=== PATIENT | male | born 1985 | race Caucasian/White ===

== ENCOUNTER 2020-11-17 07:20 | Emergency (ER) | payer OTHER ==
[~2020-11-17] VITALS: Ht 170.2 cm; Wt 104.0 kg
--- NOTE | 2020-11-17 07:49 | PHYS DOC ---
General Adult EDM: Chief Complaint: EYE PROBLEMS HPI: HPI: 34-year-old male presents with left eye pain. The patient woke up at 1 AM with stabbing pain of the left eye. He has no idea what happened. He does not recall getting anything in it. He felt normal when he went to sleep. He was able to go back to sleep afterward improved by morning. When he woke up to get his daughter ready for school, he still had significant pain. He denies fever or chills. Review of Systems: Review of Systems: Constitutional: Denies fever or chills Eyes: Left eye pain HENT: Denies nasal congestion or sore throat Respiratory: Denies cough or shortness of breath Cardiovascular: Denies chest pain or edema GI: Denies abdominal pain, nausea, vomiting, bloody stools or diarrhea : Denies dysuria Musculoskeletal: Denies back pain or joint pain Integument: Denies rash Neurologic: Denies headache, focal weakness or sensory changes Endocrine: Denies polyuria or polydipsia Lymphatic: Denies swollen glands Psychiatric: Denies depression or anxiety Physical Exam: PE: Constitutional: Well developed, well nourished, no acute distress, non-toxic appearance. [] HENT: Normocephalic, atraumatic, bilateral external ears normal, oropharynx moist, no oral exudates, nose normal. [] Eyes: PERRLA, EOMI, conjunctiva erythematous left eye, no discharge. [] Neck: Normal range of motion, no tenderness, supple, no stridor. [] Cardiovascular:Heart rate regular rhythm, no murmur [] Lungs & Thorax: Bilateral breath sounds clear to auscultation [] Abdomen: Bowel sounds normal, soft, no tenderness, no masses, no pulsatile masses. [] Skin: Warm, dry, no erythema, no rash. [] Back: No tenderness, no CVA tenderness. [] Extremities: No tenderness, no cyanosis, no clubbing, ROM intact, no edema. [] Neurologic: Alert and oriented X 3, normal motor function, normal sensory function, no focal deficits noted. [] Psychologic: Affect normal, judgement normal, mood normal. [] EKG: EKG: [] Radiology/Procedures: Radiology/Procedures: [] Heart Score: C/O Chest Pain: N/A Risk Factors: Risk Factors: DM, Current or recent (<one month) smoker, HTN, HLP, family history of CAD, obesity. Risk Scores: Score 0 - 3: 2.5% MACE over next 6 weeks - Discharge Home Score 4 - 6: 20.3% MACE over next 6 weeks - Admit for Clinical Observation Score 7 - 10: 72.7% MACE over next 6 weeks - Early Invasive Strategies Course & Med Decision Making: Course & Med Decision Making Pertinent Labs and Imaging studies reviewed. (See chart for details) I performed a fluorescein and Wood's lamp evaluation. No obvious foreign body. No significant finding with upper eyelid inversion. The patient did have some increased uptake in the lateral sclera and a patch-like area. I will prescribe erythromycin ointment for 7 days. He is stable for discharge at this time. [] Dragon Disclaimer: Dragon Disclaimer: This electronic medical record was generated, in whole or in part, using a voice recognition dictation system. Departure Departure: Impression: Primary Impression: Bacterial conjunctivitis of left eye Disposition: HOME / SELF CARE / HOMELESS Condition: STABLE Referrals: ROSE KATE MD (PCP) Patient Instructions: Bacterial Conjunctivitis, [id number] Scripts Erythromycin Base (Erythromycin) 1 Gm Oint...g. 1 GM OP TID for bacterial conjunctivitis for 7 Days, #1 MISC Prov: TAMMY DE ANDA DO 11/17/20 TAMMY DE ANDA DO Nov 17, 2020 07:49
[2020-11-17 07:52] VITALS: BP 138/93
[2020-11-17] MEDS ORDERED: TETRACAINE 0.5% OPHTH SOLUTION 4ML BOTTLE. OS ONE (08:00)
[2020-11-17] MEDS ORDERED: FLUORESCEIN 1MG EYE STRIP. OS ONE (08:00)
[2020-11-17] MEDS ORDERED: ERYT1OIN6 OP (08:02)
== END 2020-11-17 08:10 | disposition home or self-care (01) ==
LOC: ER 07:20
DX: H10.89 Other conjunctivitis (principal)
CPT/HCPCS: 99283

== ENCOUNTER 2021-02-14 20:16 | Emergency (ER) | payer OTHER ==
[~2021-02-14] VITALS: Ht 170.2 cm; Wt 104.0 kg
[~2021-02-14 20:16] MED LIST: ERYT1OIN6 OP
[2021-02-14 21:21] VITALS: BP 126/76
--- NOTE | 2021-02-14 21:44 | PHYS DOC ---
Past History Past Surgical History: Cholecystectomy, Other Additional Past Surgical Histo: lasik eye correction Alcohol Use: Rarely General Adult EDM: Chief Complaint: LACERATION/AVULSION HPI: HPI: 35-year-old male presents with left thumb laceration. The patient was cutting with a knife when it slipped and he lacerated his thumb. The bleeding was con trolled prior to arrival. His last tetanus shot was a month and a half ago. Patient denies any other injuries or complaints at this time. Review of Systems: Review of Systems: Constitutional: Denies fever or chills Eyes: Denies change in visual acuity HENT: Denies nasal congestion or sore throat Respiratory: Denies cough or shortness of breath Cardiovascular: Denies chest pain or edema GI: Denies abdominal pain, nausea, vomiting, bloody stools or diarrhea : Denies dysuria Musculoskeletal: Denies back pain or joint pain Integument: Laceration left thumb Neurologic: Denies headache, focal weakness or sensory changes Endocrine: Denies polyuria or polydipsia Lymphatic: Denies swollen glands Psychiatric: Denies depression or anxiety Allergies: Allergies: Allergies Coded Allergies Type Severity Reaction Last Updated Verified No Known Drug Allergies 11/17/20 No Physical Exam: PE: Constitutional: Well developed, well nourished, no acute distress, non-toxic appearance. [] HENT: Normocephalic, atraumatic, bilateral external ears normal, oropharynx moist, no oral exudates, nose normal. [] Eyes: PERRLA, EOMI, conjunctiva normal, no discharge. [] Neck: Normal range of motion, no tenderness, supple, no stridor. [] Cardiovascular:Heart rate regular rhythm, no murmur [] Lungs & Thorax: Bilateral breath sounds clear to auscultation [] Abdomen: Bowel sounds normal, soft, no tenderness, no masses, no pulsatile masses. [] Skin: 3 cm linear laceration of left thumb [] Back: No tenderness, no CVA tenderness. [] Extremities: No tenderness, no cyanosis, no clubbing, ROM intact, no edema. [] Neurologic: Alert and oriented X 3, normal motor function, normal sensory function, no focal deficits noted. [] Psychologic: Affect normal, judgement normal, mood normal. [] Current Patient Data: Vital Signs: Vital Signs Date Time Temp Pulse Resp B/P (MAP) Pulse Ox O2 Delivery O2 Flow Rate FiO2 02/14/21 21:21 80 126/76 (93) 99 02/14/21 21:21 16 Room Air EKG: EKG: [] Radiology/Procedures: Radiology/Procedures: [] Heart Score: C/O Chest Pain: N/A Risk Factors: Risk Factors: DM, Current or recent (<one month) smoker, HTN, HLP, family history of CAD, obesity. Risk Scores: Score 0 - 3: 2.5% MACE over next 6 weeks - Discharge Home Score 4 - 6: 20.3% MACE over next 6 weeks - Admit for Clinical Observation Score 7 - 10: 72.7% MACE over next 6 weeks - Early Invasive Strategies Course & Med Decision Making: Course & Med Decision Making Pertinent Labs and Imaging studies reviewed. (See chart for details) I repaired the patient's wound with Dermabond skin adhesive. See note below for details. His tetanus is up-to-date. He is stable for discharge at this time. [] Dragon Disclaimer: Dragon Disclaimer: This electronic medical record was generated, in whole or in part, using a voice recognition dictation system. Laceration Repair Lac Repair Indication: [] 3 cm linear laceration of the left thumb Procedure: I obtained verbal consent from the patient. Tissue adhesive repair of his left thumb laceration. No anesthesia was used. The laceration was tho roughly irrigated with normal saline under pressure. No foreign bodies were found. With 2 layers of Dermabond skin adhesive placed over the wound. There was excellent skin approximation. Bleeding was controlled. A splint was applied over the area to keep the skin loose. No tetanus was needed. Total repaired wound length: [3 cm. Other Items: None The patient tolerated the procedure well. Complications: None. Departure Departure: Impression: Primary Impression: Laceration of left thumb Qualified Codes: S61.012A - Laceration without foreign body of left thumb without damage to nail, initial encounter Disposition: HOME / SELF CARE / HOMELESS Condition: IMPROVED Referrals: ARIK HINES (PCP) Patient Instructions: Tissue Adhesive Wound Care, [id number] TAMMY DE ANDA DO Feb 14, 2021 21:44
== END 2021-02-14 21:50 | disposition home or self-care (01) ==
LOC: ER 20:16
DX: S61.012A Laceration without foreign body of left thumb without damage to nail, initial encounter (principal); W26.0XXA Contact with knife, initial encounter; Y93.89 Activity, other specified; Y92.89 Other specified places as the place of occurrence of the external cause; Y99.8 Other external cause status
CPT/HCPCS: 12002; 99283

== ENCOUNTER 2021-06-12 18:46 | Emergency (ER) | payer OTHER ==
[~2021-06-12] VITALS: Ht 170.2 cm; Wt 106.0 kg
--- NOTE | 2021-06-12 19:32 | PHYS DOC ---
Past History Past Surgical History: Cholecystectomy, Other Additional Past Surgical Histo: lasik eye correction Alcohol Use: Occasionally General Adult EDM: Chief Complaint: FEVER HPI: HPI: Patient is a 35-year-old male here with fever and chills, which began about 24 hours ago. He has taken Tylenol and ibuprofen intermittently, but his fever has returned. He reports headache and sore throat. He reports mild congestion. He denies cough, dyspnea, chest pain. He denies abdominal pain, nausea, vomiting, diarrhea, constipation. He denies urinary symptoms. He denies rash. He denies neck pain or stiffness. He denies photophobia or vision changes. He denies any known sick contacts. He has been fully vaccinated gets COVID-19 as well as influenza. Review of Systems: Review of Systems: Constitutional: Fever and chills Eyes: Denies change in visual acuity HENT: Mild nasal congestion. Sore throat. Respiratory: Denies cough or shortness of breath Cardiovascular: Denies chest pain or edema GI: Denies abdominal pain, nausea, vomiting, diarrhea : Denies urinary symptoms Musculoskeletal: Denies back pain or joint pain Integument: Denies rash Neurologic: Mild headache, denies numbness, tingling, focal motor weakness, syncope or near syncope. Denies dizziness or vertigo Psychiatric: Denies depression or anxiety Allergies: Allergies: Allergies Coded Allergies Type Severity Reaction Last Updated Verified No Known Drug Allergies 11/17/20 No Physical Exam: PE: Constitutional: Well developed, well nourished, no acute distress, non-toxic appearance. [] HENT: Normocephalic, atraumatic, oropharynx is patent, uvula midline, moderate bilateral tonsillar erythema and exudate are noted. No asymmetry. No drooling or trismus. No pooling of secretions. Mucous members are moist. External ears are normal bilaterally. TMs are clear bilaterally. Nares are patent clear without rhinorrhea or epistaxis. No purulent rhinorrhea. Eyes: PERRL, EOMI, conjunctiva normal, no discharge. [] Neck: Normal range of motion, no tenderness, supple, no stridor. Trachea is midline. No meningismus Cardiovascular:Heart rate regular rhythm, +2 radial and +2 posterior tibial pulses bilaterally Lungs & Thorax: Lungs are clear to auscultation bilaterally without rales, rhonchi or wheezes. No distress Abdomen: Abdomen is soft, nondistended, nontender to palpation. No palpable masses organomegaly. Skin: Warm, dry, no erythema, no rash. [] Back: No tenderness, no CVA tenderness. [] Extremities: No tenderness, no cyanosis, no clubbing, ROM intact, no edema. No calf tenderness. Neurologic: Alert and oriented X 3, normal motor function, normal sensory function, no focal deficits noted. [] Psychologic: Affect normal, judgement normal, mood normal. [] Current Patient Data: Vital Signs: Vital Signs Date Time Temp Pulse Resp B/P (MAP) Pulse Ox O2 Delivery O2 Flow Rate FiO2 06/12/21 18:54 99.6 109 16 131/75 (93) 96 Room Air EKG: EKG: [] Radiology/Procedures: Radiology/Procedures: [] Heart Score: C/O Chest Pain: No Risk Factors: Risk Factors: DM, Current or recent (<one month) smoker, HTN, HLP, family history of CAD, obesity. Risk Scores: Score 0 - 3: 2.5% MACE over next 6 weeks - Discharge Home Score 4 - 6: 20.3% MACE over next 6 weeks - Admit for Clinical Observation Score 7 - 10: 72.7% MACE over next 6 weeks - Early Invasive Strategies Course & Med Decision Making: Course & Med Decision Making Pertinent Labs and Imaging studies reviewed. (See chart for details) I ordered IM Toradol for pain. First dose of cephalexin is given for empiric treatment of tonsillitis/presumed strep. Rapid strep is negative. However, he does have evidence of exudative tonsillitis/pharyngitis. At present, COVID and influenza and RSV assay testing must be sent out, may take several hours. He is fully vaccinated. I do recommend he stay home from work while he has a fever. Must be fever free for 24 hours before returning. He must mask. He may perform an at-home COVID test if he wishes. However, he will be empirically treated with antibiotics. He understands that the throat culture is pending. Home care instructions are provided. Return precautions are given. He verbalizes understanding. Coty Disclaimer: Coty Disclaimer: This electronic medical record was generated, in whole or in part, using a voice recognition dictation system. Departure Departure: Impression: Primary Impression: Tonsillitis with exudate Disposition: HOME / SELF CARE / HOMELESS Condition: STABLE Referrals: MARJ MENDES DO, MPH (PCP) Patient Instructions: Strep Throat, Tonsillitis Additional Instructions: Take the full course of antibiotics as directed until gone. Use OTC Ibuprofen for pain. Use the prescription pain medication for severe pain. Return for difficulty breathing, chest pain, uncontrolled vomiting, if you are unable to swallow or for any other concerns. Follow up with your primary care doctor. Scripts Hydrocodone/Acetaminophen (Hydrocodone-Acetamin 5-325 mg) 1 Each Tablet 1 EACH PO PRN Q6HRS PRN for PAIN, #15 TAB Prov: SAMIA WHALEN DO 06/12/21 Cephalexin (CEPHALEXIN) 500 Mg Tablet 1 TAB PO BID for tonsillitis for 7 Days, #14 TAB Prov: SAMIA WHALEN DO 06/12/21 SAMIA WHALEN DO June 12, 2021 19:32
[2021-06-12] MEDS ORDERED: KETOROLAC 30 MG/ML VIAL. IM ONE (20:00)
[2021-06-12] MEDS ORDERED: HYDR-2759 PO (21:21)
[2021-06-12] MEDS ORDERED: CEPH500T PO (21:21)
[2021-06-12 21:25] VITALS: BP 121/72
[2021-06-12] MEDS ORDERED: CEPHALEXIN 250 MG CAPSULE PO ONE (21:30)
== END 2021-06-12 21:30 | disposition home or self-care (01) ==
LOC: ER 18:46
DX: J03.90 Acute tonsillitis, unspecified (principal)
CPT/HCPCS: 87070; 87880; 96372; 99285; J1885